=== PATIENT | male | born 1955 | race American Indian/Alaskan Native ===

== ENCOUNTER 2017-04-05 12:21 | Outpatient (CLI) | payer MEDICARE ==
--- NOTE | 2017-04-05 13:16 | XRay Report ---
XRAY BILATERAL ELBOW THREE VIEWS EACH: 04/05/17 12:21:00 CLINICAL: Bilateral elbow pain. FINDINGS: Right: No fracture or dislocation. No joint effusion. A prominent triceps insertion enthesophyte with overlying soft tissue swelling. No foreign body or soft tissue air. Left: No fracture or dislocation. No joint effusion. Mild posterior nonspecific soft tissue swelling. Surgical clips in the anterior soft tissues of the proximal forearm. IMPRESSION: 1. Right triceps enthesopathy. 2. Mild nonspecific left soft tissue swelling but otherwise negative left elbow.
== END 2017-04-05 12:22 | disposition home or self-care (01) ==
LOC: SPVIMAG 12:21
PROVIDERS: ATTEND Orthopaedic Surgery
DX: M77.8 Other enthesopathies, not elsewhere classified (principal); M79.89 Other specified soft tissue disorders